=== PATIENT | female | born 2000 | race Two or more races ===

== ENCOUNTER 2024-03-29 10:52 | Outpatient (CLI) | payer OTHER | END 2024-03-29 10:53 | disposition home or self-care (01) | LOC: PRENATAL 10:52 | PROVIDERS: ATTEND Obstetrics & Gynecology Maternal & Fetal Medicine | DX: O35.3XX0 Maternal care for (suspected) damage to fetus from viral disease in mother, not applicable or unspecified (principal); O44.00 Complete placenta previa NOS or without hemorrhage, unspecified trimester; Z3A.23 23 weeks gestation of pregnancy ==

== ENCOUNTER 2024-05-31 10:26 | Outpatient (CLI) | payer OTHER | END 2024-05-31 10:29 | disposition home or self-care (01) | LOC: PRENATAL 10:26 | PROVIDERS: ATTEND Obstetrics & Gynecology Maternal & Fetal Medicine | DX: O26.843 Uterine size-date discrepancy, third trimester (principal); O36.8130 Decreased fetal movements, third trimester, not applicable or unspecified; Z3A.32 32 weeks gestation of pregnancy ==

== ENCOUNTER 2024-07-22 08:19 | Inpatient (IN) | payer OTHER ==
[~2024-07-22] VITALS: Ht 162.6 cm; Wt 70.8 kg
[2024-07-22 08:41] VITALS: BP 117/76
[2024-07-22] MEDS ORDERED: OXYTOCIN 500 ML IV SCH (09:45)
[2024-07-22 09:56] VITALS: BP 117/76
[2024-07-22 09:56] LABS: URINE APPEARANCE Clear; URINE BILIRRUBIN Negative (NEGATIVE); URINE BLOOD Negative; URINE COLOR Yellow; URINE GLUCOSE Negative (NEGATIVE); URINE KETONE Negative (NEGATIVE); URINE LEUKOCYTE Moderate; URINE NITRATE Negative; URINE PROTEIN Negative (NEGATIVE); URINE UROBILINOGEN 0.2 E.U./dl
[2024-07-22 09:58] LABS: HEMATOCRIT 38.8 % (36.0-45.00); HEMOGLOBIN 13.6 g/dL (12.0-15.00); MEAN CELL VOLUME 95.3 fL (80.00-100.00); MEAN CORPUSCULAR HEMOGLOBIN 33.5 pg (27.00-32.0); MEAN CORPUSCULAR HGB CONC 35.1 g/dl (32.0-36.0); PLATELET COUNT 202 K/uL (150-450); RED BLOOD COUNT 4.07 M/uL (4.00-6.00); RED CELL DISTRIBUTION WIDTH 12.7 % (11.5-14.5)
[2024-07-22 10:02] LABS: URINE EPITHELIAL CELLS 63.9 uL (0.0-38.8); URINE RBC 19.5 uL (0.0-20.8); URINE WBC 124.7 uL (0.0-23.2)
[2024-07-22 10:23] LABS: INR < 0.93; PARTIAL THROMBOPLASTIN TIME 28.3 SECONDS (22.0-34.0); PROTHROMBIN TIME 9.9 SECONDS (9.0-11.5)
[2024-07-22 10:36] LABS: ALBUMIN 3.1 gm/dL (3.4-5.0); BILIRUBIN TOTAL 0.38 mg/dL (0.3-1.2); CREATININE SERUM 0.71 mg/dL (0.55-1.02); GFR 100.3; GLOBULINA 3.2 G/DL (2.4-3.5); POTASSIUM 3.96 mEq/L (3.5-5.1); TOTAL PROTEIN 6.3 gm/dL (6.4-8.2)
[2024-07-22 10:37] LABS: URINE CAST 0.29 uL (0.0-1.40)
[2024-07-22 11:41] VITALS: BP 119/74
[2024-07-22] MEDS ORDERED: MORPHINE SULFATE 4 MG/ML VIAL IV ONE (12:45)
[2024-07-22] MEDS ORDERED: CHLORHEXIDINE GLUCONATE 120 ML BOTTLE TP SCH (14:30)
[2024-07-22] MEDS ORDERED: ACETAMINOPHEN 500 MG GEL..CAP PO PRN (14:30)
[2024-07-22] MEDS ORDERED: OXYTOCIN 1,000 ML IV SCH (14:30)
[2024-07-22] MEDS ORDERED: BENZOCAINE/MENTHOL 90 ML BOTTLE TOP SCH (16:00)
[2024-07-22 16:30] VITALS: BP 113/60
[2024-07-22] MEDS ORDERED: DOCUSATE SODIUM 100MG CAP PO SCH (17:00)
[2024-07-22 21:03] VITALS: BP 119/74
[2024-07-22 23:29] VITALS: BP 104/69
[2024-07-23 01:16] VITALS: BP 100/85
[2024-07-23 09:51] VITALS: BP 109/73
[2024-07-23 16:30] VITALS: BP 115/74
[2024-07-24] VITALS: BP 106/67
[2024-07-24 07:59] VITALS: BP 122/65
[2024-07-24] MEDS ORDERED: NAPR500T14 PO (11:44)
== END 2024-07-24 16:01 | disposition home or self-care (01) | DRG 807 ==
LOC: LDR 08:19 → OB/GYN 20:32
PROVIDERS: ADMIT Obstetrics & Gynecology; ATTEND Obstetrics & Gynecology
PROC: 10E0XZZ Delivery of Products of Conception, External Approach (ICD-10-PCS; principal; 2024-07-22)
PROC: 0KQM0ZZ Repair Perineum Muscle, Open Approach (ICD-10-PCS; 2024-07-22)
PROC: 4A1HXCZ Monitoring of Products of Conception, Cardiac Rate, External Approach (ICD-10-PCS; 2024-07-22)
DX: O70.1 Second degree perineal laceration during delivery (principal); Z37.0 Single live birth; Z3A.39 39 weeks gestation of pregnancy